=== PATIENT | male | born 1960 | race American Indian/Alaskan Native ===

== ENCOUNTER 2017-05-22 08:59 | Emergency (ER) | payer MEDICARE ==
[2017-05-22 09:16] VITALS: BP 160/100
[2017-05-22 11:44] LABS: Hematocrit 48.1 % (35.5-45.6); Hemoglobin 16.4 gm/dl (11.8-15.2); Mean Corpuscular HGB Conc 34 % (32-34); Mean Corpuscular Hemoglobin 30 pg (28-32); Mean Corpuscular Volume 87 fl (84-94); Platelet Count 207 K/mm3 (140-440); Red Blood Count 5.52 M/mm3 (3.65-5.03); Red Cell Distribution Width 14.9 % (13.2-15.2); White Blood Count 6.3 K/mm3 (4.5-11.0)
[2017-05-22 11:50] LABS: INR 1.04 (0.87-1.13)
[2017-05-22 11:51] LABS: Partial Thromboplastin Time 41.5 Sec. (24.2-36.6)
[2017-05-22 11:58] LABS: Alanine Aminotransferase 12 units/L (7-56); Albumin 3.8 g/dL (3.9-5); Albumin/Globulin Ratio 0.7 %; Alkaline Phosphatase 92 units/L (35-129); Anion Gap 21 mmol/L; BUN/Creatinine Ratio 7; Bilirubin,Direct < 0.2 mg/dL (0-0.2); Blood Urea Nitrogen 11 mg/dL (9-20); Calcium 9.2 mg/dL (8.4-10.2); Carbon Dioxide 21 mmol/L (22-30); Chloride 97.8 mmol/L (98-107); Glucose 74 mg/dL (75-100); Potassium 4.2 mmol/L (3.6-5.0); Sodium 136 mmol/L (137-145); Total Protein 9.3 g/dL (6.3-8.2)
[2017-05-22 13:41] LABS: Basophils % (Manual) 0 % (0.0-1.8); Blastocytes % (Manual) 0 %
[2017-05-22 13:42] LABS: Anisocytosis Few; Diff Status Complete; Large Platelets Few
== END 2017-05-22 09:27 | disposition left against medical advice (07) ==
LOC: ED 08:59
DX: R07.9 Chest pain, unspecified (principal); Z53.21 Procedure and treatment not carried out due to patient leaving prior to being seen by health care provider
CPT/HCPCS: 36415; 80048; 80074; 84484; 85007; 85025; 85610; 85730; 93005; 93010

== ENCOUNTER 2022-03-28 10:10 | Emergency (ER) | payer SELFPAY | END 2022-03-28 10:15 | disposition left against medical advice (07) | LOC: ED 10:10 | DX: R07.89 Other chest pain (principal); R51.9 Headache, unspecified; Z53.21 Procedure and treatment not carried out due to patient leaving prior to being seen by health care provider ==